=== PATIENT | male | born 1990 | race Caucasian/White ===

== ENCOUNTER 2017-05-02 04:50 | Inpatient (IN) | payer OTHER ==
[~2017-05-02] VITALS: Ht 175.3 cm; Wt 74.4 kg
--- NOTE | ~2017-05-02 | DS ---
Unit #: [id number] #: [id number] Patient: JOSH SOLITARIO JR [id number] [facility] [address] [place] [address] [id number] MR#: [id number] NAME: JOSH SOLITARIO JR ROOM: P212 Age: 26 Sex: M Admission Date: 05/03/2017 : 1990 Discharge Date: 05/07/2017 Attending Physician: Bree Cummings M.D. Primary Care Physician: Primary Care Physician No DISCHARGE SUMMARY IDENTIFICATION DATA Mr. Solitario is a 26-year-old single white male who is a resident of [place], [place], and is known to us from previous encounter and was transferred to us from emergency room on a 72-hour hold. DISCHARGE DIAGNOSES PSYCHIATRIC: Bipolar disorder most recent episode, depressed, recurrent, moderate, without psychotic features. Opiate dependence, moderate. Methamphetamine abuse, moderate. MEDICAL: Diabetes mellitus. Hepatitis C. Enlarged liver. Hypertension. STRESSORS: Mild psychosocial stressors. HISTORY OF PRESENT ILLNESS Same as in initial psychiatric evaluation. PAST PSYCHIATRIC HISTORY Same as in initial psychiatric evaluation. PAST MEDICAL HISTORY Same as in initial psychiatric evaluation. HOSPITAL COURSE The patient was admitted to the adult chemical dependency and psychiatric unit at [facility] geovanna Tolliver and was oriented to the hospital environment. Routine p.r.n. medications were initiated, and he was started back on his home medications and was closely monitored. He was taking the medications regularly and was tolerating them fairly well and was able to show a decent therapeutic response. As such it was decided that he will be discharged home. We will continue treatment on outpatient basis. DISCHARGE MEDICATIONS 1. Topamax 50 mg twice a day for bipolar. 2. Celexa 20 mg a day for depression. 3. Neurontin 300 mg 3 times a day for neuropathy. 4. Levemir 45 units at bedtime for diabetes. 5. NovoLog 10 units 3 times a day with meal for diabetes. CONDITION AT DISCHARGE Stable. Unit #: [id number] #: [id number] Patient: JOSH SOLITARIO JR PROGNOSIS Fair. Dictated by... Bree Cummings M.D. IAA/bzg TD: 05/09/2017 07:35 JOB #: [id number] DISCHARGE SUMMARY Page 1 of 1 X Bree Cummings MD DISCHARGE SUMMARY
--- NOTE | ~2017-05-02 | PA ---
Unit #: [id number] #: [id number] Patient: JOSH SOLITARIO JR [id number] [facility] [address] [place] [address] [id number] Cassi MR#: [id number] NAME: JOSH SOLITARIO JR ROOM: P212 Age: 26 Sex: M Admission Date: 05/03/2017 : 1990 Date of Assessment: 05/04/2017 Attending Physician: Bree Cummings M.D. Admitting Physician: Bree Cummings M.D. Primary Care Physician: Primary Care Physician No PSYCHIATRIC ASSESSMENT IDENTIFYING DATA Mr. Solitario is a 26-year-old, single, white male, who is a resident of [place], [place], and is known to us from previous encounter, was transferred to us from the emergency room at 72 hours hold. CHIEF COMPLAINT "I've been having suicidal thoughts. Yesterday, I tried to overdose on heroin." HISTORY OF PRESENT ILLNESS Mr. Solitario is a 26-year-old white male with a history of substance abuse and mood disorder, who was taken to the local hospital emergency room with increasing depression and suicidal thoughts and plan to overdose and that he tried to overdose on heroin yesterday and "pretty much have been overdosing on the last week and half and I've had a little homicidal thoughts, but I'm not right now. I've just been getting really irritated more easily lately. I was arguing with a neighbor and started having some bad thoughts, but I did not really want to kill him. I've been on medicines for the last 8 months and my suicide is starting to override my medicines. The medications need to be adjusted. I still want to kill myself just like when I get that way I will overdose. I've been clean for about 7 months until yesterday. It has just been a spiral of events over the last month to month and a half." The nurses in [facility] reported that the patient came in stating that he was suicidal, was trying to overdose on methamphetamine and heroin "but would not have to activate any treatment. He says he has been irritable lately, but he has been pleasant in the emergency room." SUBSTANCE ABUSE HISTORY The patient reports history of cannabis, cocaine and opioid abuse, and reports that he was clean for 7 months and just ended up relapsing yesterday. PAST PSYCHIATRIC HISTORY The patient has had a history of psychiatric treatment at [facility], and review of the medical records indicate that he is supposed to be on Topamax and Celexa, but has been noncompliant with medications. PAST MEDICAL HISTORY The patient's medical history is significant for diabetes mellitus, hepatitis C, enlarged liver, hypertension. Unit #: [id number] #: [id number] Patient: JOSH SOLITARIO JR ALLERGIES Acetaminophen and ibuprofen. PERSONAL AND SOCIAL HISTORY A 26-year-old white male, who reports that he is single, unemployed, and essentially homeless and has poor social support system. MENTAL STATUS EXAMINATION Young white male, who was casually dressed with fair personal hygiene, appears to be in no acute distress or discomfort. He was awake and alert on interaction with intact orientation to time, place, and person. His mood was anxious and depressed with a congruent affect. His speech was slow and goal directed. His thought processes were disorganized with some looseness of associations and flight of ideas and suicidal ideations. His insight and judgment remain significantly impaired. DIAGNOSTIC IMPRESSION Psychiatric: Bipolar disorder, most recent episode depressed, recurrent, moderate, without psychotic features; opioid dependence, moderate; methamphetamine abuse, moderate. Medical: Diabetes mellitus, hepatitis C, enlarging liver, hypertension. Stressors: Moderate psychosocial stressors. TREATMENT PLAN 1. The patient has presented with a history of mood disorder, and has been decompensating and will need inpatient hospitalization for safety and stabilization. We will start him back on his home medications. We will adjust the medications and monitor response. 2. Supportive therapy was provided to the patient. 3. Safe, structured, and nourishing environment will be provided. ESTIMATED LENGTH OF STAY 5 to 7 days. ABILITY TO HELP SELF Limited. WILLINGNESS TO HELP SELF The patient appears to be willing to help self. STRENGTHS 1. Communicative. 2. Cooperative. PROBLEMS 1. Chronic dysphoric symptoms. 2. Chronic chemical dependency. 3. Poor social support system. DISCHARGE CRITERIA This will be contingent upon the patient's ability to show resolution of his depression and anxiety and his ability to stay safe to himself and others, particularly after discharge from the hospital. Dictated by... Unit #: [id number] #: [id number] Patient: JOSH SOLITARIO JR, M.D. IAA/mumtaz TD: 05/04/2017 07:04 JOB #: [id number] PSYCHIATRIC ASSESSMENT Page 1 of 1 X Bree Cummings MD PSYCHIATRIC ASSESSMENT
--- NOTE | ~2017-05-02 | HP ---
Unit #: [id number] #: [id number] Patient: TRENTON HOPKINS JR [id number] [place] [address] [id number] MR#: [id number] NAME: TRENTON HOPKINS JR ROOM: P212 Age: 26 Sex: M Admission Date: 05/03/2017 : 1990 Attending Physician: Bree Cummings M.D. Admitting Physician: Bree Cummings M.D. Primary Care Physician: Primary Care Physician No HISTORY AND PHYSICAL HISTORY OF PRESENT ILLNESS Trenton is a 26 year old admitted to [address] [place] [address] because of his continued drug use. He has had numerous admissions to this facility for the same. PAST MEDICAL HISTORY 1. Long history of poly-illicit substance abuse. 2. Diabetes mellitus, type 1. Patient is noncompliant with medications. 3. Hepatitis C. 4. History of withdrawal seizures. 5. History of fatty liver. PAST SURGICAL HISTORY Nothing reported. ALLERGIES No known drug allergies. SOCIAL HISTORY Smokes 1 pack per day. Denies alcohol. Admits to a long history of poly-illicit substance abuse to include IV heroin and methamphetamine. FAMILY HISTORY Medically noncontributory. REVIEW OF SYSTEMS CONSTITUTIONAL: No fever or chills. HEENT: Denies any sore throat, ear pain or runny nose. CARDIOVASCULAR: Denies chest pain, irregular heart rhythm or palpitations. CHEST: Denies shortness of breath or cough. No hemoptysis. GASTROINTESTINAL: Denies nausea, vomiting, diarrhea or chronic constipation. ENDOCRINE: Denies history of increased thirst or urination. No recent significant weight loss or gain. GENITOURINARY: Denies dysuria, frequency, or hematuria. SKIN: Denies any rashes. HEMATOLOGIC: Denies history of increased bleeding or bruising. MUSCULOSKELETAL: Denies any hot, swollen joints. No generalized muscle pain. NEUROLOGIC: Denies problems with vision or speech. No frequent, severe headaches. No numbness, tingling or weakness in any extremities. Denies loss of bladder or bowel control. CURRENT MEDICATIONS Unit #: [id number] #: [id number] Patient: TRENTON HOPKINS JR 1. Detox protocol. 2. Levemir 50 units q.h.s. 3. Topamax 50 mg b.i.d. 4. NovoLog per sliding scale, 6 units before each meal. 5. Neurontin 300 mg t.i.d. 6. Celexa 20 mg daily. PHYSICAL EXAMINATION GENERAL: Alert, thin, in no apparent distress. VITAL SIGNS: Blood pressure 122/82, heart rate 80, respirations 16, temperature 98.6. WEIGHT: 164. HEIGHT: 5 feet 9 inches. SKIN: Warm and dry without rash or lesion. HEENT: Normocephalic. TMs not viewed. Oral and nasal passages clear. Conjunctivae clear. PERRLA. EOMs intact. NECK: Supple without lymphadenopathy or thyromegaly. HEART: Regular rate and rhythm without murmur. LUNGS: Clear. ABDOMEN: Soft, nontender. : Not done. EXTREMITIES: No evidence of cyanosis, clubbing or edema. Moves all without focal deficit. NEUROLOGICAL: Grossly within normal limits. Cranial Nerves: II: Visual arce are intact. III, IV AND : Extraocular movements are intact. Pupils are equal, round and reactive to light. V: Facial sensation is grossly normal. VII: Facial movements and expression are normal. VIII: Auditory acuity grossly intact. IX, X: Uvula is midline. Phonation is normal. XI: Patient shrugs shoulders and turns head normally. XII: Tongue protrudes in the midline. Sensory and Motor Function: Sensory and motor sensation is grossly normal. Motor: moves all extremities well. Coordination: Gait is normal. Deep Tendon Reflexes: Intact. IMPRESSION Psychiatric admission. RECOMMENDATIONS PSYCHIATRIC: Per psychiatrist. MEDICAL: See no contraindication to participate in facility's activities. MEDICAL PROGNOSIS Good. MEDICAL CONDITION Stable. Dictated by... Vesta Méndez P.A.-C. for Steven Dumas/ginger TD: 05/03/2017 16:17 Unit #: [id number] #: [id number] Patient: TRENTON HOPKINS JR JOB #: [id number] HISTORY AND PHYSICAL Page 1 of 1 X Vesta Méndez X HISTORY AND PHYSICAL
--- NOTE | ~2017-05-02 | CO ---
Unit #: [id number] #: [id number] Patient: JOSH HOPKINS JR [id number] [place] [address] [id number] I MR#: [id number] NAME: JOSH HOPKINS JR ROOM: P212 Age: 26 Sex: M Admission Date: 05/03/2017 : 1990 Attending Physician: Bree Cummings M.D. Primary Care Physician: Primary Care Physician No CONSULTATION REPORT CANDI Chowdhury is a 26-year-old with history of juvenile diabetes. He said numerous admissions to this facility. We have been asked to review his medications and blood sugars. The patient was seen for his admission H and P on 05/03/2017. His medications were detailed in this document. We will monitor Accu-Cheks a.c. and h.s., provide a constant carb diet and adjust medications as necessary. Dictated by... Vesta Méndez P.A.-C. for Steven Dumas/mumtaz TD: 05/11/2017 17:17 JOB #: [id number] CONSULTATION REPORT Page 1 of 1 X Vesta Méndez CONSULTATION REPORT
--- NOTE | ~2017-05-02 | PN ---
Unit #: [id number] #: [id number] Patient: JOSH SOLITARIO JR [id number] [facility] [address] [place] [address] [id number] I MR#: [id number] NAME: JOSH SOLITARIO JR ROOM: P212 Age: 26 Sex: M Admission Date: 05/03/2017 : 1990 Attending Physician: Bree Cummings M.D. Admitting Physician: Bree Cummings M.D. Primary Care Physician: Primary Care Physician Mariola LORENZ PROGRESS NOTES DATE OF SERVICE 05/04/2017 DISCUSSION Mr. Solitario is a 26-year-old white male who was seen today. Chart was reviewed and case was discussed with staff. He has been anxious, withdrawn, and rather seclusive to himself. Meanwhile, he has been taking the medications and tolerating them fairly well with no reported side effects. MENTAL STATUS EXAMINATION Young white male who is casually dressed with fair personal hygiene, appears to be in no acute distress or discomfort. He was awake and alert on interaction with intact orientation. His mood is anxious with congruent affect. His speech is slow and goal-directed. He denies any suicidal or homicidal ideations and also denies any auditory or visual hallucinations. His insight and judgment remain slightly impaired. TREATMENT PLAN 1. We will continue him on his current medications and treatment protocol. We will monitor his response and make further adjustments as needed. 2. We will continue to follow up. Dictated by... Bree Cummings M.D. IAA/bzg TD: 05/04/2017 12:46 JOB #: [id number] Unit #: [id number] #: [id number] Patient: JOSH SOLITARIO JR [facility] PROGRESS NOTES Page 1 of 1 X Bree Cummings MD PROGRESS NOTE
--- NOTE | ~2017-05-02 | PN ---
Unit #: [id number] #: [id number] Patient: JOSH HOPKINS JR [id number] [facility] [address] [place] [address] [id number] I MR#: [id number] NAME: JOSH HOPKINS JR ROOM: P212 Age: 26 Sex: M Admission Date: 05/03/2017 : 1990 Attending Physician: Bree Cummings M.D. Admitting Physician: Bree Cummings M.D. Primary Care Physician: Primary Care Physician Mariola LORENZ PROGRESS NOTES DATE May 06, 2017 DISCUSSION Mr. Hopkins is a 26-year-old white male, who was seen today and chart was reviewed and the case was discussed with the staff. He has been anxious, withdrawn, and rather seclusive to himself. Meanwhile, he has been cooperative with the treatment recommendations and he has been taking the medications and tolerating them fairly well with no reported side effects. MENTAL STATUS EXAMINATION Young white male, who was casually dressed with fair personal hygiene and appears to be in no acute distress or discomfort. He was awake and alert on interaction with intact orientation. His mood is anxious with a congruent affect. His speech is slow and goal-directed. He denies any suicidal or homicidal ideations. His insight and judgment remain slightly impaired. TREATMENT PLAN 1. We will continue him on his current medications and treatment protocol, and will monitor his response to the medications, and make further adjustments as needed. 2. We will continue to followup. Dictated by... Steven Mcclure/tj TD: 05/07/2017 11:03 JOB #: [id number] Unit #: [id number] #: [id number] Patient: JOSH HOPKINS JR [facility] PROGRESS NOTES Page 1 of 1 X Bree Cummings MD PROGRESS NOTE
--- NOTE | ~2017-05-02 | CO ---
Unit #: [id number] #: [id number] Patient: JOSH HOPKINS JR [id number] [facility] [address] [place] [address] [id number] Cassi MR#: [id number] NAME: JOSH HOPKINS JR ROOM: P212 Age: 26 Sex: M Admission Date: 05/03/2017 : 1990 Attending Physician: Bree Cmumings M.D. Primary Care Physician: Primary Care Physician No Consultation Date: 05/06/2017 CONSULTATION REPORT Ordering provider is Dr. Cummings. REASON FOR CONSULTATION To follow up on diabetes. SUBJECTIVE Nursing called me last night with a critical high blood sugar over 500 at dinnertime. The patient was given a stat dose of 25 units of NovoLog. His insulin orders at that time were Levemir 45 units at bedtime and NovoLog 60 units at meals. His fasting blood sugars have been running a little bit low and in fact, he had a low of 38 the day before. Today, his blood sugars have been better. However, today we increased his NovoLog to 10 units with mealtime and continues Levemir 45 units. Fasting, his blood sugar is 101. At lunch, it was 189. Nursing has also done a better job of making sure he does not ingest high carb foods. We will continue to monitor that. No other changes are being made to his insulins at this time. Dictated by... Dutch Posey/mumtaz TD: 05/06/2017 21:04 JOB #: [id number] CONSULTATION REPORT Page 1 of 1 X KEL MAYA APRN CONSULTATION REPORT
--- NOTE | ~2017-05-02 | PN ---
Unit #: [id number] #: [id number] Patient: JOSH HOPKINS JR [id number] [facility] [address] [place] [address] [id number] I MR#: [id number] NAME: JOSH HOPKINS JR ROOM: P212 Age: 26 Sex: M Admission Date: 05/03/2017 : 1990 Attending Physician: Bree Cummings M.D. Admitting Physician: Bree Cummings M.D. Primary Care Physician: Primary Care Physician Mariola LORENZ PROGRESS NOTES DATE 05/05/2017 DISCUSSION Mr. Hopkins is a 26-year-old white male who was seen today and chart was reviewed and case was discussed with the staff. He has been anxious, withdrawn and rather seclusive to himself. Meanwhile, he has been cooperative with treatment recommendations and has been taking medications and tolerating them fairly well with no reported side effects. MENTAL STATUS EXAMINATION Young white male who was casually dressed with fair personal hygiene and appears to be in no acute distress or discomfort. He was awake and alert on interaction with intact orientation. His mood was anxious with congruent affect. His speech is slow and goal-directed. He denies any suicidal or homicidal ideations and also denies any auditory or visual hallucinations. His insight and judgement remains slightly impaired. TREATMENT PLAN 1. Will continue on his current treatment protocol. Will monitor his response to medications and make further adjustments as needed. 2. Will continue to follow up. Dictated by... Steven Mcclure/ginger TD: 05/05/2017 18:55 JOB #: [id number] Unit #: [id number] #: [id number] Patient: JOSH HOPKINS JR [facility] PROGRESS NOTES Page 1 of 1 X Bree Cummings MD PROGRESS NOTE
[~2017-05-02 04:50] MED LIST: BACTRIM DS TABL1 TA1; HUMALOG100 U/M1; HUMALOG100 U/M2 SUBQ; HUMALOG100 U/ML; HUMALOG100 U/ML SUBQ; INSULIN SYR1 DIS.S10 MC; LANTUS SUBQ; LANTUS100 U/ML; LANTUS100 U/ML SUBQ; LANTUS100 UNITS/; LANTUS100 UNITS/ SUBQ; LEVEMIR SUBQ; LEVEMIR100 UNITS/ SUBQ; LISINOPRIL20 MG PO; NEURONTIN300 MG PO; NEUTRA-PHOS1.25 GM PO; NICOTINE TRANSD21 MG EXT; NOVOLOG100 UNITS/ SUBQ; NOVOLOG7030 SUBQ; PHENERGAN PO; ROXICODONE5 MG PO; TRAZODONE PO; ZESTRIL10 M1 PO; ZESTRIL10 M2 PO; ZOLOFT PO; ZOLOFT100 MG PO; ZOLOFT50 MG PO
[2017-05-05 11:48] LABS: BASOPHIL# 0.1 X10e3 (0-0.3); EOSINOPHIL# 0.1 X10e3 (0-0.7); EOSINOPHIL% 1.7 % (0.0-7.0); HEMATOCRIT 45.3 % (38.0-50.0); HEMOGLOBIN 15.5 gm/dL (13.0-16.0); LYMPHOCYTE# 1.9 X10e3 (1.0-3.5); LYMPHOCYTE% 32.3 % (17.0-45.0); MEAN CELL VOLUME 81.4 FL (83-96); MEAN CORPUSCULAR HEMOGLOBIN 27.7 PG (28-34); MEAN CORPUSCULAR HGB CONC 34.1 g/dL (30-36); MEAN PLATELET VOLUME 7.2 FL (6.5-11.5); MONOCYTE# 0.5 X10e3 (0-1.0); MONOCYTE% 8.7 % (3.0-12.0); NEUTROPHIL# 3.3 X10e3 (1.5-7.1); NEUTROPHIL% 56.3 % (40-75); PLATELET COUNT 317 X10e3 (140-420); RED BLOOD COUNT 5.57 X10e (3.90-5.60); RED CELL DISTRIBUTION WIDTH 13.6 % (11.0-15.5); WHITE BLOOD COUNT 5.9 X10e3 (4.0-10.5)
[2017-05-05 12:02] LABS: DIFF IND NO
[2017-05-05 12:03] LABS: ALBUMIN SERUM 4.4 g/dL (3.5-5.0); BUN/CREATININE RATIO 28.57; CALCIUM SERUM 9.7 mg/dL (8.4-10.2); CREATININE SERUM 0.7 mg/dL (0.6-1.4); GLOM FILT RATE Estimated 128.5 mL/min (>60); POTASSIUM 4.9 mmol/L (3.5-5.1); PROTEIN TOTAL SERUM 8.1 g/dL (6.0-8.3)
[2017-05-06 11:35] LABS: URINE APPEARANCE CLEAR; URINE BILIRUBIN NEG (NEG); URINE BLOOD 2+ (NEG); URINE COLOR YELLOW; URINE GLUCOSE 250 MG/DL (NEG); URINE KETONE NEG (NEG); URINE LEUKOCYTE ESTERASE NEG (NEG); URINE NITRATE NEG (NEG); URINE PH 7.5 (5-8); URINE PROTEIN NEG (NEG); URINE SPECIFIC GRAVITY 1.012 (1.003-1.035); URINE UROBILINOGEN 0.2 MG/DL (NEG)
[2017-05-06 11:43] LABS: URINE BACTERIA AUWI NEG (NEGATIVE); URINE SQUAMOUS EPITHELIAL CELL NONE SEEN /[HPF]; UWBCS1 AUWI 0-2 (0-5)
[2017-05-06 11:46] LABS: AMPHETAMINE NEG (NEG); BARBITURATES NEG (NEG); BENZODIAZEPINES NEG (NEG); COCAINE NEG (NEG); MARIJUANA NEG (NEG); OPIATES NEG (NEG); TRICYCLIC ANTIDEPRESSANTS NEG (NEG); U METHADONE NEG (NEG)
== END 2017-05-07 16:25 | disposition home or self-care (01) | DRG 885 ==
LOC: P2S 05-03 05:41
PROVIDERS: Psychiatry & Neurology Psychiatry
PROC: HZ2ZZZZ Detoxification Services for Substance Abuse Treatment (ICD-10-PCS; principal; 2017-05-04)
DX: F31.32 Bipolar disorder, current episode depressed, moderate (principal); F11.20 Opioid dependence, uncomplicated; R16.0 Hepatomegaly, not elsewhere classified; E10.9 Type 1 diabetes mellitus without complications; Z91.14 Patient's other noncompliance with medication regimen; I10 Essential (primary) hypertension; F15.10 Other stimulant abuse, uncomplicated; B19.20 Unspecified viral hepatitis C without hepatic coma; Z79.4 Long term (current) use of insulin
CPT/HCPCS: 80053; 80307; 81003; 82947; 85025

== ENCOUNTER 2017-05-02 18:22 | Emergency (ER) | payer OTHER ==
[2017-05-02 19:54] LABS: BASOPHIL# 0.1 X10e3 (0-0.3); BASOPHIL% 1.6 % (0-2.5); EOSINOPHIL# 0.1 X10e3 (0-0.7); EOSINOPHIL% 0.9 % (0.0-7.0); HEMATOCRIT 38.8 % (38.0-50.0); HEMOGLOBIN 13.2 gm/dL (13.0-16.0); LYMPHOCYTE# 1.7 X10e3 (1.0-3.5); LYMPHOCYTE% 29.1 % (17.0-45.0); MEAN CELL VOLUME 81.4 FL (83-96); MEAN CORPUSCULAR HEMOGLOBIN 27.7 PG (28-34); MEAN CORPUSCULAR HGB CONC 34.1 g/dL (30-36); MONOCYTE# 0.6 X10e3 (0-1.0); MONOCYTE% 9.8 % (3.0-12.0); NEUTROPHIL# 3.4 X10e3 (1.5-7.1); NEUTROPHIL% 58.6 % (40-75); PLATELET COUNT 290 X10e3 (140-420); RED BLOOD COUNT 4.77 X10e (3.90-5.60); RED CELL DISTRIBUTION WIDTH 13.4 % (11.0-15.5); WHITE BLOOD COUNT 5.8 X10e3 (4.0-10.5)
[2017-05-02 19:57] LABS: DIFF IND NO
[2017-05-02 20:13] LABS: ACETAMINOPHEN <10 ug/mL; ALCOHOL BLOOD <5 mg/dL (0); BLOOD UREA NITROGEN 26 mg/dL (9-23); CALCIUM SERUM 8.9 mg/dL (8.4-10.2); CARBON DIOXIDE 24 mmol/L (22-31); CHLORIDE 100 mmol/L (100-111); CREATININE SERUM 1.3 mg/dL (0.6-1.4); GLOM FILT RATE Estimated 74.3 mL/min (>60); GLUCOSE FASTING 235 mg/dL (70-110); POTASSIUM 4.3 mmol/L (3.5-5.1); SALICYLATE <4.0 mg/dL; SODIUM 134 mmol/L (135-145)
== END 2017-05-03 04:50 | disposition home or self-care (01) ==
LOC: CED 18:22
PROVIDERS: Emergency Medicine
DX: T40.1X2A Poisoning by heroin, intentional self-harm, initial encounter (principal); T43.622A Poisoning by amphetamines, intentional self-harm, initial encounter; R45.850 Homicidal ideations; E11.9 Type 2 diabetes mellitus without complications; F32.9 Major depressive disorder, single episode, unspecified; F17.200 Nicotine dependence, unspecified, uncomplicated; Y92.9 Unspecified place or not applicable
CPT/HCPCS: 36415; 80048; 82947; 85025; 96360; 96361; 96372; 99284; G0480; J1815